=== PATIENT | female | born 1960 | race Caucasian/White ===

== ENCOUNTER 2017-06-29 13:28 | Inpatient (IN) | payer OTHER ==
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
[2017-06-29 14:11] LABS: PLATELET COUNT 237 10^3/uL (150-400)
[2017-06-29] MEDS ORDERED: MAGNESIUM HYDROXIDE 30 ML UDCUP PO PRN (20:19)
[2017-06-29] MEDS ORDERED: LORazepam 0.5 MG TAB PO PRN (20:19)
[2017-06-29] MEDS ORDERED: NICOTINE POLACRILEX 2 MG GUM B PRN (20:19)
[2017-06-29] MEDS ORDERED: MAG HYDROX/AL HYDROX/SIMETH 30 ML UDCUP PO PRN (20:19)
[2017-06-29] MEDS ORDERED: ACETAMINOPHEN 325 MG TAB PO PRN (20:19)
[2017-06-29] MEDS ORDERED: OLANZapine 5 MG TAB PO PRN (20:20)
[2017-06-29] MEDS: OXcarbazepine 300 MG TAB PO SCH (21:51)
[2017-06-29] MEDS: FLUoxetine 10 MG CAP PO SCH (21:51)
[2017-06-29] MEDS: ARIPiprazole 10 MG TAB PO SCH (21:51)
[2017-06-29] MEDS: OLANZapine 5 MG TAB PO SCH (21:51)
[2017-06-29] MEDS: PROPRANOLOL HCL 20 MG TAB PO SCH (21:51)
[2017-06-30] MEDS: LEVOTHYROXINE 100 MCG TAB PO SCH (06:18)
[2017-06-30] MEDS: PROPRANOLOL HCL 20 MG TAB PO SCH ×2 (08:31→22:20)
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
[2017-06-30] MEDS: ARIPiprazole 10 MG TAB PO SCH (22:17)
[2017-06-30] MEDS: FLUoxetine 10 MG CAP PO SCH (22:18)
[2017-06-30] MEDS: OXcarbazepine 300 MG TAB PO SCH (22:19)
[2017-06-30] MEDS: OLANZapine 5 MG TAB PO SCH (22:19)
[2017-07-01] MEDS: LEVOTHYROXINE 100 MCG TAB PO SCH (06:32)
[2017-07-01] MEDS: PROPRANOLOL HCL 20 MG TAB PO SCH (08:44)
--- NOTE | 2017-07-01 12:47 | SOAPPROG ---
SODAYDAY Progress Note Assessment/Plan: Assessment: 56yo with hx BMD depr, admitted on 06/29 on M-1 with paranoid delusions and passive SI. Quit [email or web address] job related to paranoia, and has paranoia about finances and identity theft 07/01/17 15:39 Per staff: Slept 8hr, attending gps, still with psychotic thoughts wondering if commercials on TV are real Pt reports no current med s/e noted, and is on several diff meds which she states were working well until recent occurrences involving her email, states she received some emails that she signed up for credit cards when she didn't, feeling someone "sabotoged" her LinkedIn profile and changed information about her, also believes someone has "gone into our finances and destroyed them". Reports she and her have different bank accounts. They have been 3 years and he works at [employer] making [employer]. States he has tried to help, and police gave her ideas who to call. States she tried to freeze her credit report and called a # given to her by the bank, and after giving her SSN , they hung up on her. MSE: nml/low vol speech, articulate, good eye contact, restricted/flattened affect although somewhat anxious, "worried" mood, denied AH/VH. Linear responses , denied active SI. Feels safe on unit, but also regarding SI, states "I feel like my life is over, destroyed..." Wouldn't feel this way if could get more reassurance that financial info and email etc is actually okay. Some insight- "I 'm here b/c I was exceptionally paranoid about having done something wrong at work and getting sued". PLAN: discussed med options and simplification of regimen but also incr effectivity- states recently started zyprexa 5mg. no s/e. likes prozac. has some reservations making many changes to her regimen because likes Dr. Kaufman and feels she had been stable with current regimen (minus zyprexa) until recently. agreed to: -decr abilify 15mg to 10mg or even 5mg with 5mg prn, -uptitrate zyprexa from 5mg to 10mg qhs. combo zyprexa/prozac indicated for bipolar depression. possibly could change to symbiax as outpt for single med. would need f/u for metabolic risks -change propranolol from 20mg bid to 20mg bid PRN. pt not sure if she needs or if helpful, will leave available as prn and monitor. -pt feels she'd like to have reassurance regarding emails about credit cards being opened in her name, by f/u with freezing her credit, and any other reassurances as indicated. will d/w CC, and pt states she will also t/w her family again if anything else she can do while inpatient. pt did not express paranoia regarding work, rather is questioning whether she could return. -pt has refused to sign JESUS for collateral -[facility] exp 07/02 at 1600 Objective: Vital Signs Temp Pulse Resp BP Pulse Ox 36.6 C 84 14 118/62 98 07/01/17 06:00 07/01/17 06:00 07/01/17 06:00 07/01/17 06:00 07/01/17 06:00 - Time Spent With Patient Time Spent With Patient: 35min - Pending Discharge Pending Discharge Within 24 Hours: No Pending Discharge Within 48 Hours: No ICD10 Worksheet Patient Problems: Problems Problem Status Onset Delusional disorder Acute Paranoia Acute
[2017-07-01] MEDS ORDERED: PROPRANOLOL HCL 20 MG TAB PO PRN (20:31)
[2017-07-01] MEDS: FLUoxetine 10 MG CAP PO SCH (20:57)
[2017-07-01] MEDS: OXcarbazepine 300 MG TAB PO SCH (20:57)
[2017-07-01] MEDS: OLANZapine DISINTEGR 10 MG TAB PO SCH (20:57)
[2017-07-01] MEDS: ARIPiprazole 5 MG TAB PO SCH (20:57)
[2017-07-01] MEDS ORDERED: ARIPiprazole 5 MG TAB PO SCH (21:00)
[2017-07-02] MEDS: LEVOTHYROXINE 100 MCG TAB PO SCH (05:59)
[2017-07-02] MEDS: ARIPiprazole 5 MG TAB PO SCH (20:02)
[2017-07-02] MEDS: OLANZapine DISINTEGR 10 MG TAB PO SCH (20:02)
[2017-07-02] MEDS: OXcarbazepine 300 MG TAB PO SCH (20:02)
[2017-07-02] MEDS: FLUoxetine 10 MG CAP PO SCH (20:02)
--- NOTE | 2017-07-02 20:53 | SOAPPROG ---
SOAP Progress Note Assessment/Plan: Assessment: 56yo with hx BMD depr, (altho family report no hx of manic episode), admitted on 06/29 on M-1 with paranoid delusions and passive SI. Quit [employer] job related to paranoia, and has paranoia about finances and identity theft. Similar to past episode 2 yr ago but worse 07/01/17 15:39 Per staff: Slept 8hr, attending gps, still with psychotic thoughts wondering if commercials on TV are real Pt reports no current med s/e noted, and is on several diff meds which she states were working well until recent occurrences involving her email, states she received some emails that she signed up for credit cards when she didn't, feeling someone "sabotoged" her LinkedIn profile and changed information about her, also believes someone has "gone into our finances and destroyed them". Reports she and her have different bank accounts. They have been 3 years and he works at [employer] making [employer]. States he has tried to help, and police gave her ideas who to call. States she tried to freeze her credit report and called a # given to her by the [employer], and after giving her SSN , they hung up on her. MSE: nml/low vol speech, articulate, good eye contact, restricted/flattened affect although somewhat anxious, "worried" mood, denied AH/VH. Linear responses , denied active SI. Feels safe on unit, but also regarding SI, states "I feel like my life is over, destroyed..." Wouldn't feel this way if could get more reassurance that financial info and email etc is actually okay. Some insight- "I 'm here b/c I was exceptionally paranoid about having done something wrong at work and getting sued". PLAN: discussed med options and simplification of regimen but also incr effectivity- states recently started zyprexa 5mg. no s/e. likes prozac. has some reservations making many changes to her regimen because likes Dr. Kaufman and feels she had been stable with current regimen (minus zyprexa) until recently. agreed to: -decr abilify 15mg to 10mg or even 5mg with 5mg prn, -uptitrate zyprexa from 5mg to 10mg qhs. combo zyprexa/prozac indicated for bipolar depression. possibly could change to symbiax as outpt for single med. would need f/u for metabolic risks -change propranolol from 20mg bid to 20mg bid PRN. pt not sure if she needs or if helpful, will leave available as prn and monitor. -pt feels she'd like to have reassurance regarding emails about credit cards being opened in her name, by f/u with freezing her credit, and any other reassurances as indicated. will d/w CC, and pt states she will also t/w her family again if anything else she can do while inpatient. pt did not express paranoia regarding work, rather is questioning whether she could return. -pt has refused to sign JESUS for collateral -[facility] exp 07/02 at 1600 07/02/17 16:47 slept 8hr met with patient during visiting hours, with family members present (with patient verbal consent) and animal care specialist. see cc note for details. family expressed significant support for patient and significant concern that she is far from baseline, has been steadily decompensating over past year, seems to have been depressed and now psychotic with paranoid delusions, with similar symptoms but to greater degree than when admitted to [facility] 2 years ago. States at that time she had halluinations with demonic entities, $ concers , felt family was at risk, "a true psychotic break", believing water was poisoned etc. Was in hosp for 2 weeks and pt admits she felt well by the time she was d/cd. Patient acknowledged family support. agreed she has felt more paranoid, but seemed to have hard time accepting family reassurance regarding finances being fine and no evidence of identity theft. 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 Patient denied med s/e. [id number], who is a psychiatrist at [facility], expressed concern about several meds at subtherapeutic doses, and feels pt needs consistent outpatient therapy and regular psychiatry f/u after d/c, indicating also that $ was not an issue. *No family member has known patient to ever have had a manic episode. no substance use. one family member mentioned hx of catatonic sxs prior to [facility] admit and has concerns of pt heading that direction again. Discussed realistic identity theft concerns vs paranoia and any reasonable f/u needing to be done. family reports there is no evidence of concerns she has expressed- having email hacked, identity stolen, finances ruined, Linked In profile altered, etc. MSE: sitting on bed, next to . nml speech rate/vol but decr spont, restricted/blunted affect although did seem anxious when mentioning paranoid concerns. checkbook in lap. pt denied SI/HI or any AH/VH. did not appear RIS but did seem preoccupied with worry and not convinced by family reassurance around her paranoia. perseverative delusional thoughts. admitted feeling "my life is ruined". i/j poor. PLAN: -cont zyprexa 10mg hs tonight and incr 15mg tomorrow -cont abilify 5mg, recent decr from 15mg. and d/c after today -cont prozac 10mg, -will d/c trileptal 300mg b/c subtherapeutic anyway and other better avail options for BMD depr, or if with MDD/psychotic f. -M-1 expires at 4pm. discussed options- incl vol, d/c or STC. Pt would like d/ c. MD and family all agree pt not stable and still quite distressed, psychotic , and needing continued hosp for med adjustments and stabilization. Informed pt of being placed on STC, rights, right to 3rd libertarian notification, and legal representation. -collateral from [facility]. -pt signed JESUS for family (bro, ) Objective: Vital Signs Temp Pulse Resp BP Pulse Ox 36.3 C 84 16 108/61 95 07/02/17 06:00 07/02/17 06:00 07/02/17 06:00 07/02/17 06:00 07/02/17 06:00 - Time Spent With Patient Time Spent With Patient: 45min with family present and animal care specialist - Pending Discharge Pending Discharge Within 24 Hours: No Pending Discharge Within 48 Hours: No ICD10 Worksheet Patient Problems: Problems Problem Status Onset Delusional disorder Acute Paranoia Acute
[2017-07-03] MEDS: LEVOTHYROXINE 100 MCG TAB PO SCH (04:49)
[2017-07-03] MEDS ORDERED: LORazepam 0.5 MG TAB PO PRN (12:21)
[2017-07-03] MEDS ORDERED: LORazepam 0.5 MG TAB PO ONE (12:22)
--- NOTE | 2017-07-03 12:53 | SOAPPROG ---
SOAP Progress Note Assessment/Plan: Assessment: Bipolar Disorder type II, depressed, severe with psychotic features Mild Neurocognitive Disorder - possible delirium Akathisia Insomnia Possible catatonic features History of hypothyroidism - on synthroid Patient is hypoverbal and appears dysphoric, has nihilistic and paranoid thoughts. Patient has mild cognitive impairment but was on 5 psychiatric medications prior to admission. Plan: Patient is on a short term certification from 07/02/17 for grave disability Ativan 0.5mg now for akathisia Ativan 0.5mg BID for anxiety/akathisia and possible catatonic features Discontinue Fluoxetine and Aripiprazole (possible drug interaction, akathisia); paroxetine could interact with residual Aripiprazole and is contraindicated in the short-term Discontinue Oxcarbazapine and Propranolol (possible drug interaction) Continue Olanzapine 10mg QHS for psychosis, increased after admission, monitor for catatonia symptoms Start Remeron 7.5mg QHS for depression Left message for psychiatrist Dr. Kaufman requesting call back Met with patients on unit and reviewed treatment plan Spoke to patients brother Brice on phone Check AM BMP and CK, HgbA1c, lipids Monitor depression, psychosis; monitor PO intake Phlebotomy Supervisor is trying to obtain 2016 [facility] discharge summary Consider baseline Head CT when stable to leave the unit 07/03/17 13:10 Subjective: CC: 'I don't have health insurance' and 'I feel like I'm in hell.' Patient is a poor historian with minimal speech. Reports fearing that people stole her identity, stole a house that she owns and is renting, and are stealing her checkbooks. Reports believing that she doesn't need treatment ' because I don't have any money or insurance.' Unable to explain mood but later reports feeling that she is in hell. Reports in 1992 being treated with Paxil and Stelazine for depression with psychotic features 'I thought Satan was after me.' Reports hospitalization in [facility] in 2016 'I had a revelation, then was depressed.' Unable to explain diagnosis or medication regimen from that hospital. Endorses anxiety and feeling restless. Objective: Vital Signs Temp Pulse Resp BP Pulse Ox 36.4 C 82 14 108/61 96 07/03/17 05:45 07/03/17 05:45 07/03/17 05:45 07/02/17 06:00 07/03/17 05:45 Alert WF. Thin. Appears anxious, dysphoric, briefly tearful. Mood 'I don't have health insurance' and 'I feel like I'm in hell.' Thoughts briefly organized with very little information, undertalkative, fear that her identity was stolen, commercials on TV are related to her, that she doesn't have any money or health insurance. Denies SI or thoughts of but later reports feeling hopeless and worthless. Denies HI or violent thoughts. Denies AH. Insight poor. SLUMS , 02/14 reversed numbers, 04/17 word recall, 05/21 story recall. Staff report patient anxious on unit, only slept 4 hours over night. Ate breakfast this AM, isolating to room, not participating in groups, accusing other patients of stealing her checkbook. - Time Spent With Patient Time Spent With Patient: 30 minutes Met with patient individually and with patient/. - Pending Discharge Pending Discharge Within 24 Hours: No Pending Discharge Within 48 Hours: No ICD10 Worksheet Patient Problems: Problems Problem Status Onset Paranoia Acute Delusional disorder Acute
[2017-07-03] MEDS: OLANZapine DISINTEGR 10 MG TAB PO SCH (20:43)
[2017-07-03] MEDS: MIRTAZAPINE 15 MG TAB PO SCH (20:43)
[2017-07-03] MEDS: LORazepam 0.5 MG TAB PO SCH (20:43)
[2017-07-04] MEDS: LEVOTHYROXINE 100 MCG TAB PO SCH (06:08)
[2017-07-04] MEDS: LORazepam 0.5 MG TAB PO SCH ×2 (08:24→20:44)
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
[2017-07-04] MEDS: MIRTAZAPINE 15 MG TAB PO SCH (20:44)
[2017-07-04] MEDS: OLANZapine DISINTEGR 10 MG TAB PO SCH (20:44)
[2017-07-05] MEDS: LEVOTHYROXINE 100 MCG TAB PO SCH (06:03)
[2017-07-05] MEDS: LORazepam 0.5 MG TAB PO SCH ×2 (08:12→20:44)
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
[2017-07-05] MEDS: MIRTAZAPINE 15 MG TAB PO SCH (20:44)
[2017-07-05] MEDS: OLANZapine DISINTEGR 10 MG TAB PO SCH (20:44)
[2017-07-06] MEDS: LEVOTHYROXINE 100 MCG TAB PO SCH (05:59)
[2017-07-06] MEDS: LORazepam 0.5 MG TAB PO SCH ×2 (08:31→21:00)
--- NOTE | 2017-07-06 11:50 | SOAPPROG ---
SOAP Progress Note Assessment/Plan: Assessment: Bipolar Disorder II, depressed, severe with psychotic features. Mild cognitive impairment--continue to r/o cause poly-pharm as was on 5 psychotropic medications prior to admission. Cognitive function continues to improve with less medications. Patient continues to improve; no delusions reported during interview; insight and judgement improved. Patient is reaching maximum hospital benefit and will likely discharge tomorrow to the care of her , Kadeem. Plan: Patient is on a short-term certification from 07/02/17 for grave disability. Review psychotropic medication treatment informed consent and recommendations. No medication changes at this time as more time is needed to determine ongoing tolerability and efficacy. Plan is to continue to monitor her for response and side effects from medications, and ongoing monitoring and evaluation psychosis and safety. Consider discharge Monday if she is in stable condition, safe, and has a safe discharge plan. She could benefit from continued inpatient hospitalization for crisis stabilization, safety, and medication evaluation. PSYCHOTROPIC MEDICATION TREATMENT INFORMED CONSENT and RECOMMENDATIONS: (1) Review nature of condition, diagnosis, and prognosis. (2) Review nature and purpose of psychotropic medication treatment. (3) Review type of psychotropic medications being ordered. (4) Review risk and benefits of psychotropic medication treatment. (5) Review probable length of time will need to take medications. (6) Review risk and benefits of not undergoing psychotropic medication treatment. (7) Review alternative treatments to psychotropic medications. (8) Review psychotropic medications contraindications, side effects, and importance of reporting any side effects to a psychiatric provider or nurse during inpatient hospitalization, and upon discharge to her psychiatric outpatient provider, her primary care provider, or other health adult daycare coordinator. (9) Review importance of her asking a nurse, psychiatric provider, or her primary care provider any questions or problems concerning the psychotropic medications. (10) Review importance of reporting to her psychiatric provider, her primary care provider, or other health adult daycare coordinator if she plans to or becomes . (11) Confirm she understands the information that has been provided, and she understands, accepts, and agrees to psychotropic medications. (12) Review safety plan and importance of her to communicate to staff while hospitalized if she is ever a danger to herself/others, or unable to care for herself, and upon discharge, the importance for her to contact [facility] or [facility], or go to the nearest emergency room, if she is ever a danger to herself/others, or unable to care for herself. (13) Recommend that upon discharge she establishes medication management treatment with a psychiatric provider and establishes routine therapy appointments. (14) Recommend that upon discharge she follows- up with her primary care provider. 07/06/17 11:57 Subjective: Following up with patient for evaluation of psychosis, anxiety, depression, and safety. The patient reports, feeling good...doing a lot better. She reports she has improved since her admission. She states she is sleeping well with 8 hours of sleep, and feels rested upon awakening. The patient reports her appetite is normal, and she is eating all of her meals; she reports her mood as good...a little anxious. She states she is taking her medications as prescribed and reports no side effects. She is states she is attending groups and interacting more with patients and staff. She reports no SI. She reports no depression symptoms and mild-moderate anxiety symptoms. She reports no delusions. Objective: Vital Signs Temp Pulse Resp BP Pulse Ox 36.8 C 114 H 14 106/66 94 07/06/17 06:34 07/06/17 06:34 07/06/17 06:34 07/06/17 06:34 07/06/17 06:34 07/05/17 07/06/17 07/07/17 05:59 05:59 05:59 Intake Total 750 700 Balance 750 700 Consulted with nursing staff for update on Mariajose progress in her treatment. Nursing reports the following: Sleep: 6.5 hours Completing all ADL's independently Appetite: eating all meals Med adherence: yes Activity in groups: attending and engaging in groups Side effects: none EPS/akathisia: none reported; none noted SI: denies She is currently improving, tolerating Zyprexa 10 mg po QHS for psychosis and mood, Remeron 7.5 mg po QD for mood, and Ativan 0.5 mg po BID for anxiety with no reports of side effects, and with good response for symptoms. The patient presents casually dressed and with good hygiene, and looks stated age. She is sitting, posture is upright, and position is relaxed. She appears awake, alert, and responds appropriately and reasonably during interview. She is engaged, relates well to interviewer, and emotional facial expression is appropriate to situation and changes appropriately with topic. She is cooperative, makes comfortable eye contact, and movements are voluntary, deliberate, coordinated, and smooth and even with no inappropriate movements. She makes laryngeal sounds effortlessly and shares conversation appropriately; pace of conversation is appropriate, and stream of talking is fluent; articulation is clear and understandable; word choice is effortless and appropriate for education level; completes sentences, occasionally pausing to think; rate and volume are appropriate for interview and setting. She reports mood as happy. Her affect is stable with full variable range, congruent with mood, and appropriate to speech and circumstances. She has linear and logical thinking, with no loose associations, tangential thought, thought blocking, concrete thinking, or any other signs of formal thought disorder. She denies suicidal and homicidal ideation, and denies hallucinations and delusions. She appears to be fair historian with fair judgement and poor insight into current condition. No apparent dysfunction in recent or remote memory noted, and no evidence of gross cognitive dysfunction noted at any point during the interview. This interviewer spoke to Kadeem, patient's , following meeting with patient. Kadeem reports he has been visiting her daily, and states he has noticed a significant improvement in her mood and thinking. He feels comfortable and states she could be safe to discharge home to his care. He agrees with plan for her to discharge tomorrow. - Pending Discharge Pending Discharge Within 24 Hours: Yes Pending Discharge Within 48 Hours: No Pending Discharge Date: 07/07/17 Pending Discharge Time: 13:00 ICD10 Worksheet Patient Problems: Problems Problem Status Onset Bipolar 2 disorder, major depressive episode Acute Delusional disorder Acute Paranoia Acute Thyroid disease Acute
[2017-07-06] MEDS: OLANZapine DISINTEGR 10 MG TAB PO SCH (21:00)
[2017-07-06] MEDS: MIRTAZAPINE 15 MG TAB PO SCH (21:00)
[2017-07-07] MEDS: LEVOTHYROXINE 100 MCG TAB PO SCH (06:21)
[2017-07-07 06:37] VITALS: BP 115/77
[2017-07-07] MEDS: LORazepam 0.5 MG TAB PO SCH (08:18)
--- NOTE | 2017-07-07 13:59 | BDS ---
[f rep st] BEHAVIORAL HEALTH DISCHARGE SUMMARY REASON FOR ADMISSION: Per the [facility] ER consult note, patient came to the emergency department with her family concerned about paranoia, anxiety, and memory loss. Further details for reason for admission can be found in the ED report. ADMISSION DIAGNOSES: Thyroid disease, bipolar 2 disorder, current episode depressed, paranoia, delusional disorder. ADMISSION PHYSICAL EXAM/REVIEW OF SYSTEMS: She denied fever, chills, weight change. She was not in any pain. No palpitations. No cough or dyspnea. No nausea, vomiting, constipation, or diarrhea. She had good appetite and no dysuria. She has no weakness, numbness, or tingling of the extremities. No headache. No difficulties swallowing. Otherwise, a 10 point review of systems was negative. Vital signs were normal. Additional details regarding the physical exam can be found in the consult note dated 06/30/17. ADMISSION LABS: CBC was within normal limits. Serum chemistry revealed a slightly elevated glucose, but it was likely not fasting. Otherwise renal function and electrolytes were normal. Vitamin B12 was normal. TSH was normal. Toxicology screen and the serum were negative for alcohol and in the urine was negative for any substances of abuse. HOSPITAL COURSE: The patient was safe throughout her stay, active in her treatment, engaged in therapy, and was appropriate with staff. She reports she feels safe to discharge today, and she contracts for safety. The treatment team consensus is that the patient is safe to discharge today and is in stable condition, and the appropriate outpatient followup services have been established. Upon admission, patient was unable to test reality, reported ideas of reference, and was disorganized. Zyprexa 10 mg p.o. q.h.s. was started to target psychosis, delusional symptoms, and mood instability. This medication was tolerated with no report of side effects and with good response. Patient presented with delusions and ideas of reference and for the first few days viewed these as normal thoughts. As of Monday of this week, she reported these thoughts as abnormal and as of today, she is no longer reporting ideas of reference or any other delusional thinking. The patient is now able to test reality and has significantly improved insight. Remeron 7.5 mg p.o. q.h.s. was started to target depression and for short term relief of insomnia symptoms. Was tolerated with no report of side effects and with good response. Upon admission, patient was only sleeping about 3-4 hours per night and has slept 8 hours for the last several nights and reports feeling rested upon awakening. Ativan 0.5 mg p.o. b.i.d. was started to target anxiety symptoms. This medication was tolerated with no report of side effects and with good response. Patient does not have a history of addiction and these medications will be continued on an outpatient basis. Psychotropic medication treatment, informed consent, and recommendations were provided, and these can be found listed below. CONDITION ON DISCHARGE: The patient is in stable condition at time of discharge and level of risk is low. The patient presents as casually dressed with good hygiene and looks stated age. She is sitting, posture is upright, and position is relaxed. She appears awake, alert, and responds appropriately and reasonably during interview. She is engaged, relates well to the interviewer, and emotional facial expression is appropriate to the situation and changes appropriately with topic. She is cooperative, makes comfortable eye contact, and movements are voluntary, deliberate, coordinated and smooth and even with no inappropriate movements. She makes laryngeal sounds effortlessly and shares conversation appropriately. Pace of conversation is appropriate and stream of talking is fluent. Articulation is clear and understandable. Word choice is effortless and appropriate for education level. She completes sentences, occasionally pauses to think, and the rate in volume are appropriate for interview and setting. She reports mood as euthymic. Her affect is stable with full variable range congruent with mood and appropriate to speech and circumstances. She has linear and logical thinking with no loose associations, tangential thoughts, thought blocking, concrete thinking, or any other signs of formal thought disorder. She denies suicidal and homicidal ideation and denies hallucinations and delusions. She appears to be a reliable historian, with sound judgment, and good insight into her condition. No apparent dysfunction in remote or recent memory noted and no evidence of gross cognitive dysfunction noted at any point during the interview. DISCHARGE DIAGNOSES: Thyroid disease, bipolar 2 disorder, most recent episode depressed, paranoia, delusional disorder. DISCHARGE MEDICATIONS: 1. Levothyroxine 100 mcg 1 time per day. This is a continued home prescription. 2. Ativan 0.5 mg p.o. b.i.d. Rx was given, #60 with no refills. 3. Remeron 7.5 mg p.o. q.h.s., #30 with no refills. A prescription for this medication was provided at discharge. 4. Zyprexa 10 mg p.o. q.h.s., #30 prescription was provided at discharge with no refills. DISPOSITION: Patient will be discharging into the care of her and return home with her today. FOLLOWUP: Patient's outpatient psychiatrist is Dr. Kaufman and she plans to followup with him as soon as possible and the patient did receive written instructions with times and dates of her next appointment. The following recommendations were provided to the patient at discharge: Continue current psychotropic medications as prescribed, report any side effects to a psychiatric outpatient provider, a primary care provider, or other healthcare professional. Address any questions or problems concerning the psychotropic medications with the psychiatric outpatient provider, a PCP, or other healthcare professional. Contact [facility] or [facility] or go to the nearest emergency room if you are ever a danger to yourself, others, or unable to care for yourself. As soon as possible, establish routine medication management treatment with a psychiatric provider and establish routine therapy appointments and followup with primary care provider. The patient reports that she understands and agrees with these instructions and with the written instructions for times and dates of her outpatient appointments. LEGAL COURSE: Patient was placed on a short-term certification on 07/02/17 due to inability to test reality and poor insight and judgment. Certification was terminated yesterday by Dr. Alonzo as the patient's insight and reality testing improved. Patient agreed to voluntary hospitalization and will be discharged voluntarily today. ATTITUDE AT TIME OF DISCHARGE: The patient's attitude is positive at time of discharge and she reports she looks forward to discharging today. The patient states she is stable, feels like she has improved since admission, feels safe to discharge, and she contracts for safety. She states she plans to continue psychotropic medications and to establish medication management with an outpatient provider after she discharges. She reports she understands the information provided to her, and she understands, accepts, and agrees to psychotropic medications. She reports internal protective factors as coping skills she has learned while hospitalized here, and she plans to continue practicing these coping skills after discharge. She reports external protective factors as her family. She describes looking forward to seeing her after discharge. She describes future plans as looking for another job and spending more time with her family. She reports her family and friends look forward to her discharging today. Kadeem, her , reports she has a safe discharge plan, and she is safe to discharge home with him today. There were no pending labs or studies at the time of discharge. PSYCHOTROPIC MEDICATION TREATMENT INFORMED CONSENT and RECOMMENDATIONS: (1) Review nature of condition, diagnosis, and prognosis. (2) Review nature and purpose of psychotropic medication treatment. (3) Review type of psychotropic medications being ordered. (4) Review risk and benefits of psychotropic medication treatment. (5) Review probable length of time will need to take medications. (6) Review risk and benefits of not undergoing psychotropic medication treatment. (7) Review alternative treatments to psychotropic medications. (8) Review psychotropic medications contraindications, side effects, and importance of reporting any side effects to a psychiatric provider or nurse during inpatient hospitalization, and upon discharge to her psychiatric outpatient provider, her primary care provider, or other health family day care provider. (9) Review importance of her asking a nurse, psychiatric provider, or her primary care provider any questions or problems concerning the psychotropic medications. (10) Review importance of reporting to her psychiatric provider, her primary care provider, or other health family day care provider if she plans to or becomes . (11) Confirm she understands the information that has been provided, and she understands, accepts, and agrees to psychotropic medications. (12) Review safety plan and importance of her to communicate to staff while hospitalized if she is ever a danger to herself/others, or unable to care for herself, and upon discharge, the importance for her to contact [facility] or [facility], or go to the nearest emergency room, if she is ever a danger to herself/others, or unable to care for herself. (13) Recommend that upon discharge she establishes routine medication management treatment with a psychiatric provider and establishes routine therapy appointments. (14) Recommend that upon discharge she follows- up with her primary care provider. /[id number]/MODL MTDD
== END 2017-07-07 13:14 | disposition home or self-care (01) | DRG 885 ==
LOC: BBEH 18:45
PROVIDERS: ADMIT Registered Nurse; ATTEND Registered Nurse
DX: F31.5 Bipolar disorder, current episode depressed, severe, with psychotic features (principal); F22 Delusional disorders; G31.84 Mild cognitive impairment of uncertain or unknown etiology; E03.9 Hypothyroidism, unspecified
CPT/HCPCS: 80305; 82607-90; G0480

== ENCOUNTER → 2017-10-31 | Outpatient (CLI) | payer OTHER ==
--- NOTE | 2017-10-31 19:19 | CPEEG ---
DATE OF STUDY: 10/31/2017 INTERPRETATION: Normal EEG during wakefulness and drowsiness. There were no potentially epileptogen ic abnormalities present during the recording. REPORT: This EEG contains 9-10 Hz alpha activity of the posterior head regions. There was no abnorm al activation at rest, during photic stimulation, or hyperventilation. The patient became intermitte ntly drowsy during the study. There was no abnormal activation during drowsiness or during times of arousal. Copy requested to: Ernesto Javier Dr. /[id number]/MODL
== END ==
LOC: FCPNEURO 13:48
PROVIDERS: ATTEND Psychiatry & Neurology Clinical Neurophysiology
DX: G31.84 Mild cognitive impairment of uncertain or unknown etiology (principal)

== ENCOUNTER → 2017-11-27 | Outpatient (CLI) | payer OTHER ==
--- NOTE | 2017-11-27 14:29 | CPEEG ---
DATE OF STUDY: 11/27/2017 INTERPRETATION: Normal EEG during wakefulness and sleep. There were no potentially epileptogenic ab normalities present during the recording. REPORT: This EEG contains 9-10 Hz alpha activity to the posterior head regions. There was no abnorm al activation at rest, during photic stimulation or hyperventilation. The patient became drowsy and fell asleep during the study. There was no abnormal activation during drowsiness, sleep, or during t imes of arousal. Copy requested to: Ernesto Javier /[id number]/MODL
== END ==
LOC: FCPNEURO 08:00
PROVIDERS: ATTEND Psychiatry & Neurology Neurology
DX: R45.1 Restlessness and agitation (principal); E05.90 Thyrotoxicosis, unspecified without thyrotoxic crisis or storm